=== PATIENT | female | born 1950 | race Caucasian/White ===

== ENCOUNTER 2017-04-01 05:52 | Day surgery (SDC) | payer MEDICARE, OTHER ==
[~2017-04-01] VITALS: Ht 157.5 cm; Wt 59.1 kg
[2017-04-01] MEDS ORDERED: SODIUM CHLORIDE 0.9% 1,000 ML IV ONE ×2 (06:00→07:00)
[2017-04-01] MEDS ORDERED: ASPI-1107 PO (06:30)
[2017-04-01] MEDS ORDERED: BENA20 PO (06:30)
[2017-04-01] MEDS ORDERED: MONT10TA21 PO (06:30)
[2017-04-01] MEDS ORDERED: FLUT16H NASAL (06:30)
[2017-04-01] MEDS ORDERED: FAMO20 PO (06:30)
[2017-04-01] MEDS ORDERED: ALBU8HFA4 IH (06:30)
[2017-04-01] MEDS ORDERED: BUDE10.2 IH (06:30)
[2017-04-01] MEDS ORDERED: MIDAZOLAM HCL 2 MG/2 ML VIAL ONE (07:06)
[2017-04-01] MEDS ORDERED: FentaNYL CITRATE-PF 100 MCG/2 ML VIAL ONE (07:07)
[2017-04-01] MEDS ORDERED: MethylPREDNISolone SOD SUCC 125 MG/2 ML VIAL ONE (08:01)
[2017-04-01] MEDS ORDERED: MethylPREDNISolone SOD SUCC 125 MG/2 ML VIAL IVP ONE (08:30)
[2017-04-01] MEDS ORDERED: BENZOCAINE 20% 50 MCG/SPRAY 57 GM TP ONE (17:51)
[2017-04-01] MEDS ORDERED: LIDOCAINE HCL 4% 50 ML SOLUTION TP ONE (17:51)
[2017-04-01] MEDS ORDERED: LIDOCAINE HCL 2% 30 ML JELLY TP ONE (17:51)
[2017-04-01] MEDS ORDERED: OXYGEN THERAPY IH SCH (20:00)
== END 2017-04-01 09:35 | disposition home or self-care (01) ==
LOC: SURGERY 05:52
PROVIDERS: ATTEND Internal Medicine Critical Care Medicine
DX: J38.4 Edema of larynx (principal); B37.0 Candidal stomatitis; F17.210 Nicotine dependence, cigarettes, uncomplicated; Z98.51 Tubal ligation status; Z87.442 Personal history of urinary calculi; Z87.19 Personal history of other diseases of the digestive system
CPT/HCPCS: 31623; 31624; 71010; 87015 ×2; 87070; 87101; 87147; 87205; 87220; 88108; 88312; 93005; J2250; J2930; J3010; J7030